=== PATIENT | female | born 1950 | race Two or more races ===

== ENCOUNTER 2023-07-19 17:15 | Emergency (ER) | payer OTHER ==
[~2023-07-19] VITALS: Ht 162.6 cm; Wt 72.1 kg
[2023-07-19] MEDS ORDERED: LIPITOR20 MG PO (17:23)
[2023-07-19] MEDS ORDERED: LEVOTHYROXINE25 MCG PO (17:23)
[2023-07-19] MEDS ORDERED: HYDRODIURIL12.5 MG PO (17:24)
== END 2023-07-19 21:10 | disposition home or self-care (01) ==
LOC: ER 17:15
PROVIDERS: General Practice
DX: J18.9 Pneumonia, unspecified organism (principal)
CPT/HCPCS: 36415; 71250; 82803; 94640; 99285; J0696; J2930; J7042